=== PATIENT | male | born 1955 | race Hispanic/Latino ===

== ENCOUNTER 2021-11-03 15:24 | Emergency (ER) | payer OTHER ==
[~2021-11-03] VITALS: Ht 170.2 cm; Wt 73.9 kg
[2021-11-03] MEDS ORDERED: LIDOCAINE HCL-MPF 1% 2ML VIAL ONE (16:24)
[2021-11-03] MEDS ORDERED: ACET-66 PO (16:36)
[2021-11-03 17:45] VITALS: BP 123/69
== END 2021-11-03 17:48 | disposition home or self-care (01) ==
LOC: EDH 15:24
DX: S93.104A Unspecified dislocation of right toe(s), initial encounter (principal); E11.9 Type 2 diabetes mellitus without complications; Z98.890 Other specified postprocedural states; W20.8XXA Other cause of strike by thrown, projected or falling object, initial encounter; Y93.89 Activity, other specified; Y92.89 Other specified places as the place of occurrence of the external cause; Y99.8 Other external cause status
CPT/HCPCS: 28660; 73660 ×2; 99284; J3490